=== PATIENT | female | born 1960 | race Caucasian/White ===

== ENCOUNTER 2017-06-14 13:56 | Emergency (ER) | payer OTHER ==
[~2017-06-14] VITALS: Ht 165.1 cm; Wt 68.0 kg
[2017-06-14] MEDS ORDERED: SODIUM CHLORIDE 0.9% 1,000 ML IV ONE (14:35)
[2017-06-14 15:00] LABS: CHLORIDE 102 mEq/L (98-107)
[2017-06-14 15:03] LABS: BASOPHILS % 1.2 % (0.0-2.0); EOSINOPHILS % 2.9 % (0.0-5.0); HEMATOCRIT. 39.3 % (36.0-48.0); HEMOGLOBIN. 12.9 g/dL (12.0-16.0); INR 1.1; LYMPHOCYTES % 40.1 % (20.0-50.0); MEAN CORPUSCULAR HEMOGLOBIN 32.8 pg (28.0-32.0); MEAN CORPUSCULAR VOLUME 99.8 fL (81.0-99.0); NEUTROPHILS % 43.8 % (40.0-76.0); PLATELET 252 x1000/uL (130-400); PROTHROMBIN TIME 11.2 sec (9.4-11.6); RED BLOOD CELL COUNT 3.93 mill/uL (4.2-5.4)
[2017-06-14 16:42] VITALS: BP 125/78
== END 2017-06-14 16:52 | disposition home or self-care (01) ==
LOC: ER 14:17
DX: S01.81XA Laceration without foreign body of other part of head, initial encounter (principal); R42 Dizziness and giddiness; W01.0XXA Fall on same level from slipping, tripping and stumbling without subsequent striking against object, initial encounter; Y93.89 Activity, other specified; Y92.520 Airport as the place of occurrence of the external cause; I10 Essential (primary) hypertension; R94.31 Abnormal electrocardiogram [ECG] [EKG]; E78.00 Pure hypercholesterolemia, unspecified; F41.9 Anxiety disorder, unspecified
CPT/HCPCS: 36415; 70450; 70486; 80053; 85025; 85610; 93005; 96360; 96361; 99285; J7030